=== PATIENT | male | born 1995 | race Caucasian/White ===

== ENCOUNTER 2022-02-03 16:54 | Outpatient (RCR) | payer MEDICAID, SELFPAY ==
--- NOTE | 2022-02-03 18:27 | HP.PTEVAL ---
Patient's Visit Information SHERIN LAINEZ is a 26 year old M referred to Physical Therapy by CELI GONZALES with a diagnosis of R foot and ankle pain. Date of Evaluation: 02/03/22 Physical Therapist: Max Everett, PT, ATC - Visit Plan Frequency: 2-3x /Week Duration: 4-6 Weeks Plan: R ankle stretching and strengthening, PROM and Mobs, balance and proprio, bike, and HEP - Subjective Pt reports he had a bunionectomy approximately 3 months ago. Pt reports he was NWBing in a splint for 4 weeks, then wore a cam boot for approximately 4 more weeks. Pt reports this was when he started to notice pain in his R ankle and foot. Pt notes he has pain that starts on the lateral malleolus and up the lateral aspect of his R LE. 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 Pt reports skating is a way for him to stay busy and keep clean. Pt reports he has sleep difficulty at this time secondary to pain. Pt notes he has tingling and numbness on the lateral 3 toes of his R foot. 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 Pt reports he has a really hard time with standing or walking for greater than 1/2 hour. 4/10 pain while sitting here in the clinic, 8/10 at worst (after standing for over 1/2 hour) - Pain R foot/ankle Pain Intensity (Out of 10): 4 Pain Intensity Range: 8 - Objective Palpation: Pt is very tender along the peroneal muscle group. No obvious deformituies at this time. Girth: B feet are 54 cm. ROM: L ankle Df= 5, PF= 55; L ankle DF= -10, PF= 50. MMT: L ankle is 5/5 throughout while R ankle is 4-/5 and painful with all testing. Gait: Pt ambulates with lack of toe off. Pt still displays a mild limp of R LE. - Balance/Special Test Scores Lower Extremity Functional Score: 32 - Goals Goal 1:: Decrease R foot and ankle pain x 50% to aid with sleep Goal Time Frame: 4-6 Weeks Goal 2:: Increase R ankle strength x 1 grade to aid with stair negotiation without difficulty Goal Time Frame: 4-6 Weeks Goal 3:: Increase R ankle DF ROM x 15 degrees to aid with restoring a more normalized gait pattern Goal Time Frame: 4-6 Weeks Goal 4:: I with HEP Goal Time Frame: 4-6 Weeks - Rehabilitation Potential Physical Therapy Diagnosis: Pt has R foot and ankle pain, limited R ankle ROM, and R ankle weakness secondary to residual effects from R bunionectomy Rehabilitation Potential: Good - Anticipated Interventions Patient/Client Instruction: Educate patient on: Condition, Plan of Care For the Purpose of:: To decrease pain, To increase ROM, To improve muscle performance and motor function Therapeutic Exercise to Include: Strength training, Endurance training, Balance training, Flexibilty training, Gait and locomotor training, Passive ROM, Active ROM For the Purpose of:: To decrease pain, To increase ROM, To improve muscle performance and motor function Cryotherapy (ice pack, ice massage): Yes For the Purpose of:: To decrease pain Thank you for the opportunity to evaluate your patient. For Medicare and Medicare HMO plans, please review the plan of care and approve it. It will need to be FAXED BACK to us at [phone] for Medicare purposes. For Medicare only, by signing this I certify the plan of care. Please let me know if there are questions or concerns regarding this plan of care. Physician Signature: Date:
--- NOTE | 2022-03-30 13:46 | HP.PT.NRP ---
SHERIN LAINEZ was seen in my office for initial evaluation on 02/03/22. The following Plan of Care was established for this patient: Initial Frequency: 2-3x /Week Initial Duration: 4-6 Weeks Patient/Client Instruction: Educate patient on: Condition, Plan of Care For the Purpose of:: To decrease pain, To increase ROM, To improve muscle performance and motor function Therapeutic Exercise to Include: Strength training, Endurance training, Balance training, Flexibilty training, Gait and locomotor training, Passive ROM, Active ROM For the Purpose of:: To decrease pain, To increase ROM, To improve muscle performance and motor function Cryotherapy (ice pack, ice massage): Yes For the Purpose of:: To decrease pain This patient was last seen in our office . Pertinent comments regarding their Physical therapy will appear below: Pt was evaluated for R ankle pain on the date of 02/03/22. Pt has not returned through todays date, and is discontinued at this time At this point I will be discontinuing this patient from physical therapy. I would be happy to see this patient again in the future if found appropriate by the physician. Thank you! Max Everett, PT, ATC Balance/Gait/Functional tests - Balance/Special Test Scores Lower Extremity Functional Score: 32
== END 2022-02-03 19:00 | disposition home or self-care (01) ==
LOC: PT 16:54
PROVIDERS: Referring Provider Podiatrist; Visit Provider Podiatrist
DX: Z47.89 Encounter for other orthopedic aftercare (principal); M25.579 Pain in unspecified ankle and joints of unspecified foot
CPT/HCPCS: 97110; 97161